=== PATIENT | male | born 1940 | race Caucasian/White ===

== ENCOUNTER 2018-11-29 17:29 | Inpatient (IN) | payer MEDICARE, OTHER ==
[~2018-11-29] VITALS: Ht 182.9 cm; Wt 71.9 kg
[~2018-11-29 17:29] MED LIST: ASPI-496 PO; CARB1TAB25 PO; CARB1TAB44 PO; CLON0.5T11 PO; FLUT50DI NAS; MIRA25TA PO; MODA200T2 PO; PRAZ1CAP2 PO; PSYL1POW PO; QUET25TA7 PO; ROPI0.5T2 PO; SERT100T32 PO; TRAM50TA2 PO
[2018-11-29 20:00] VITALS: BP 143/77
[2018-11-29] MEDS ORDERED: ONDANSETRON 2MG/ML, 2ML IVPush PRN (21:00)
[2018-11-29] MEDS: CARBIDOPA/LEVODOPA CR 50 MG/200 MG TABLET PO SCH (21:00)
[2018-11-29] MEDS: CARBIDOPA/LEVODOPA 25 MG/250 MG TABLET PO SCH (21:00)
[2018-11-29] MEDS ORDERED: HALOPERIDOL 5 MG/ML IV PRN (21:00)
[2018-11-29] MEDS ORDERED: hydrALAzine 20 MG/ML, 1ML IVPush PRN (21:00)
[2018-11-29] MEDS ORDERED: morphine SULFATE 10 MG/ML, 1ML IVPush PRN (21:00)
[2018-11-29] MEDS: QUETIAPINE 25MG TABLET PO SCH (21:00)
[2018-11-29] MEDS: MODAFINIL 100 MG TABLET PO SCH (22:00)
[2018-11-29] MEDS: SODIUM CHLORIDE 0.9% 1,000 ML IV SCH (22:08)
[2018-11-29] MEDS ORDERED: ATOR20TA37 PO (22:41)
[2018-11-29] MEDS ORDERED: DONE10TA7 PO (22:41)
[2018-11-29] MEDS ORDERED: SENN-177 PO (22:41)
[2018-11-29] MEDS ORDERED: BISA5TAB5 PO (22:41)
[2018-11-30 02:00] VITALS: BP 170/83
[2018-11-30 05:29] LABS: BASOPHILS # (AUTO) 0.04 x10^3/uL (0-0.1); BASOPHILS % (AUTO) 0 % (0-1); EOSINOPHILS # (AUTO) 0.32 x10^3/uL (0-0.4); EOSINOPHILS % (AUTO) 3 % (1-7); LYMPHOCYTES # (AUTO) 1.25 x10^3/uL (1-3.4); LYMPHOCYTES % (AUTO) 13 % (22-44); MD NO; MEAN CORPUSCULAR HGB CONC 33.3 g/dL (33.2-36.2); MEAN PLATELET VOLUME 7.6 fL (7.4-10.4); MONOCYTES # (AUTO) 0.74 x10^3/uL (0.2-0.8); MONOCYTES % (AUTO) 7 % (2-9); NEUTROPHILS # (AUTO) 7.69 x10^3/uL (1.8-6.8); NEUTROPHILS % (AUTO) 77 % (42-75); PLATELET COUNT 258 x10^3/uL (130-400); RED BLOOD COUNT 4.51 x10^6/uL (4.38-5.82); RED CELL DISTRIBUTION WIDTH 15.3 % (9.4-14.8)
[2018-11-30 05:35] LABS: ANION GAP 6 mmol/L (5-15); CALCIUM 8.6 mg/dL (8.5-10.1); CHLORIDE 113 mmol/L (98-107)
[2018-11-30 05:36] LABS: CREATININE 0.71 mg/dL (0.7-1.3)
[2018-11-30 07:44] VITALS: BP 153/76
[2018-11-30] MEDS ORDERED: PRAZOSIN 2 MG CAPSULE ONE (08:31)
[2018-11-30] MEDS: ROPINIROLE 0.5MG TABLET PO SCH (08:51)
[2018-11-30] MEDS: HEPARIN 5,000 UNITS/ML, 1ML SQ SCH ×2 (08:51→17:31)
[2018-11-30] MEDS: SERTRALINE 100MG TABLET PO SCH (08:51)
[2018-11-30] MEDS: CARBIDOPA/LEVODOPA 25 MG/250 MG TABLET PO SCH ×3 (08:51→20:45)
[2018-11-30] MEDS: PSYLLIUM PACKET PO SCH (08:52)
[2018-11-30] MEDS: (Mirabegron** (Myrbetriq**) 25 MG) PO SCH (08:52)
[2018-11-30] MEDS: MODAFINIL 100 MG TABLET PO SCH ×2 (08:52→20:45)
[2018-11-30] MEDS: PRAZOSIN 1 MG CAPSULE PO SCH ×2 (08:52→12:31)
[2018-11-30] MEDS ORDERED: FLUTICASONE PROPIONATE 2 MCG NAS SCH (09:00)
[2018-11-30] MEDS: SODIUM CHLORIDE 0.9% 1,000 ML IV SCH ×2 (11:33→19:51)
[2018-11-30 11:44] VITALS: BP 96/54
[2018-11-30] MEDS: HALOPERIDOL 5 MG/ML IM PRN (12:34)
[2018-11-30 14:41] VITALS: BP 141/73
[2018-11-30 19:59] VITALS: BP 129/54
[2018-11-30] MEDS: DONEPEZIL 10 MG TABLET PO SCH (20:45)
[2018-11-30] MEDS: ATORVASTATIN 20 MG TABLET PO SCH (20:45)
[2018-11-30] MEDS: QUETIAPINE 25MG TABLET PO SCH (20:45)
[2018-11-30] MEDS: CARBIDOPA/LEVODOPA CR 50 MG/200 MG TABLET PO SCH (20:46)
[2018-11-30] MEDS ORDERED: SENNA/DOCUSATE TABLET PO PRN (23:00)
[2018-11-30] MEDS ORDERED: BISACODYL 10 MG SUPP PR PRN (23:00)
[2018-12-01] MEDS: HEPARIN 5,000 UNITS/ML, 1ML SQ SCH ×2 (01:00→08:29)
[2018-12-01 02:00] VITALS: BP 100/54
[2018-12-01 05:37] LABS: ALBUMIN 3.3 g/dL (3.4-5.0); ANION GAP 7 mmol/L (5-15); CALCIUM 8.4 mg/dL (8.5-10.1); CHLORIDE 115 mmol/L (98-107)
[2018-12-01 05:40] LABS: ALKALINE PHOSPHATASE 105 U/L (45-117); BILIRUBIN,TOTAL 1.1 mg/dL (0.2-1.0); CREATININE 0.71 mg/dL (0.7-1.3); TOTAL PROTEIN 6.5 g/dL (6.4-8.2)
[2018-12-01 05:42] LABS: ALANINE AMINOTRANSFERASE < 6 U/L (12-78)
[2018-12-01 06:35] VITALS: BP 134/73
[2018-12-01] MEDS: SERTRALINE 100MG TABLET PO SCH (08:29)
[2018-12-01] MEDS: PSYLLIUM PACKET PO SCH (08:29)
[2018-12-01] MEDS: MODAFINIL 100 MG TABLET PO SCH ×2 (08:29→19:48)
[2018-12-01] MEDS: CARBIDOPA/LEVODOPA 25 MG/250 MG TABLET PO SCH ×3 (08:29→19:50)
[2018-12-01] MEDS: PRAZOSIN 1 MG CAPSULE PO SCH (08:30)
[2018-12-01] MEDS: ROPINIROLE 0.5MG TABLET PO SCH (08:31)
[2018-12-01] MEDS: ASPIRIN 81 MG TABLET EC PO SCH (08:31)
[2018-12-01] MEDS: SODIUM CHLORIDE 0.9% 1,000 ML IV SCH (08:33)
[2018-12-01] MEDS: (Mirabegron** (Myrbetriq**) 25 MG) PO SCH (09:00)
[2018-12-01] MEDS ORDERED: OXYcodone/APAP 5/325MG TABLET PO PRN (09:00)
[2018-12-01] MEDS: DOCUSATE 100 MG CAPSULE PO SCH ×2 (11:11→19:48)
[2018-12-01 12:50] VITALS: BP 100/54
[2018-12-01] MEDS ORDERED: FENTANYL PF 100 MCG/2ML ONE ×2 (14:22→15:20)
[2018-12-01] MEDS ORDERED: hydrALAzine 20 MG/ML, 1ML IV PRN (14:30)
[2018-12-01] MEDS ORDERED: ACETAMINOPHEN 325 MG TABLET PO PRN (14:30)
[2018-12-01] MEDS ORDERED: OXYcodone 5 MG/5 ML ORAL.SOL UDC PO PRN (14:30)
[2018-12-01] MEDS ORDERED: LABETALOL 5MG/ML, 20ML IV PRN (14:30)
[2018-12-01] MEDS ORDERED: SUCCINYLCHOLINE 20 MG/ML, 10ML ONE (14:35)
[2018-12-01] MEDS ORDERED: CEFAZOLIN 1,000 MG ONE (14:35)
[2018-12-01] MEDS: FENTANYL PF 100 MCG/2ML IV PRN ×2 (15:22→15:25)
[2018-12-01] MEDS ORDERED: OXYcodone 5 MG/5 ML ORAL.SOL UDC ONE (15:36)
[2018-12-01] MEDS ORDERED: morphine SULFATE 10 MG/ML, 1ML IVPush PRN (18:00)
[2018-12-01 19:09] VITALS: BP 127/67
[2018-12-01] MEDS: ATORVASTATIN 20 MG TABLET PO SCH (19:48)
[2018-12-01] MEDS: DONEPEZIL 10 MG TABLET PO SCH (19:48)
[2018-12-01] MEDS: QUETIAPINE 25MG TABLET PO SCH (19:48)
[2018-12-01] MEDS: CARBIDOPA/LEVODOPA CR 50 MG/200 MG TABLET PO SCH (19:49)
[2018-12-01] MEDS: CEFAZOLIN PMX 1GM/50ML 50 ML IV SCH (22:48)
[2018-12-01 23:54] VITALS: BP 120/64
[2018-12-02] MEDS: SODIUM CHLORIDE 0.9% 1,000 ML IV SCH ×2 (03:28→14:24)
[2018-12-02 03:36] VITALS: BP 166/79
[2018-12-02] MEDS: ENOXAPARIN 40 MG/0.4 ML SQ SCH (06:35)
[2018-12-02] MEDS: CEFAZOLIN PMX 1GM/50ML 50 ML IV SCH (06:35)
[2018-12-02 06:53] VITALS: BP 157/74
[2018-12-02] MEDS: MODAFINIL 100 MG TABLET PO SCH ×2 (09:32→20:00)
[2018-12-02] MEDS: DOCUSATE 100 MG CAPSULE PO SCH ×2 (09:33→20:00)
[2018-12-02] MEDS: CARBIDOPA/LEVODOPA 25 MG/250 MG TABLET PO SCH ×3 (09:33→20:00)
[2018-12-02] MEDS: ASPIRIN 81 MG TABLET EC PO SCH (09:33)
[2018-12-02] MEDS: PRAZOSIN 1 MG CAPSULE PO SCH (09:33)
[2018-12-02] MEDS: PSYLLIUM PACKET PO SCH (09:34)
[2018-12-02] MEDS: ROPINIROLE 0.5MG TABLET PO SCH (09:37)
[2018-12-02] MEDS: SERTRALINE 100MG TABLET PO SCH (09:37)
[2018-12-02] MEDS: (Mirabegron** (Myrbetriq**) 25 MG) PO SCH (09:39)
--- NOTE | 2018-12-02 10:58 | NUR ---
REC: Pureed diet with NTL with 1:1 assist for meals, crush meds, strict aspiration precautions; orange sheet was placed in room with swallowing precautions and recommended diet Addendum: 12/02/18 at 1058 by Liberty ESTEVEZ Amended: Links added.
--- NOTE | 2018-12-02 11:21 | NUR ---
REC: Chopped diet with NTL with assistance for meals; strict aspiration precautions; orange sheet posted in room containing swallowing precautions and recommended diet Addendum: 12/02/18 at 1122 by Liberty ESTEVEZ Amended: Links added.
[2018-12-02] MEDS: FLUTICASONE NASAL SPRAY 16GM NAS SCH (11:22)
[2018-12-02 13:54] VITALS: BP 108/70
[2018-12-02 18:53] VITALS: BP 100/48
[2018-12-02] MEDS: DONEPEZIL 10 MG TABLET PO SCH (20:00)
[2018-12-02] MEDS: ATORVASTATIN 20 MG TABLET PO SCH (20:00)
[2018-12-02] MEDS: CARBIDOPA/LEVODOPA CR 50 MG/200 MG TABLET PO SCH (20:00)
[2018-12-02] MEDS: QUETIAPINE 25MG TABLET PO SCH (20:00)
[2018-12-02] MEDS: HALOPERIDOL 5 MG/ML IM PRN (21:22)
[2018-12-03 02:03] VITALS: BP 164/56
[2018-12-03] MEDS: ENOXAPARIN 40 MG/0.4 ML SQ SCH (05:26)
[2018-12-03] MEDS: SODIUM CHLORIDE 0.9% 1,000 ML IV SCH (05:26)
[2018-12-03 06:53] VITALS: BP 146/69
[2018-12-03] MEDS ORDERED: ACET325T14 PO (07:21)
[2018-12-03] MEDS: FLUTICASONE NASAL SPRAY 16GM NAS SCH (08:13)
[2018-12-03] MEDS: (Mirabegron** (Myrbetriq**) 25 MG) PO SCH (08:13)
[2018-12-03] MEDS: ASPIRIN 81 MG TABLET EC PO SCH (09:00)
[2018-12-03] MEDS: PRAZOSIN 1 MG CAPSULE PO SCH (09:00)
[2018-12-03] MEDS: DOCUSATE 100 MG CAPSULE PO SCH (09:00)
[2018-12-03] MEDS: CARBIDOPA/LEVODOPA 25 MG/250 MG TABLET PO SCH (09:00)
[2018-12-03] MEDS: PSYLLIUM PACKET PO SCH (09:00)
[2018-12-03] MEDS: ROPINIROLE 0.5MG TABLET PO SCH (09:00)
[2018-12-03] MEDS: MODAFINIL 100 MG TABLET PO SCH (09:00)
[2018-12-03] MEDS: SERTRALINE 100MG TABLET PO SCH (09:00)
[2018-12-03 09:56] VITALS: BP 140/59
== END 2018-12-03 10:48 | DRG 480 ==
LOC: 4NOR 20:02
PROVIDERS: ADMIT Hospitalist; ATTEND Hospitalist
PROC: 0QS734Z Reposition Left Upper Femur with Internal Fixation Device, Percutaneous Approach (ICD-10-PCS; principal; 2018-12-01 14:00)
DX: S72.002A Fracture of unspecified part of neck of left femur, initial encounter for closed fracture (principal); R53.2 Functional quadriplegia; J98.11 Atelectasis; M48.56XA Collapsed vertebra, not elsewhere classified, lumbar region, initial encounter for fracture; G20 Parkinson's disease; F02.80 Dementia in other diseases classified elsewhere, unspecified severity, without behavioral disturbance, psychotic disturbance, mood disturbance, and anxiety; M16.0 Bilateral primary osteoarthritis of hip; N40.0 Benign prostatic hyperplasia without lower urinary tract symptoms; Z66 Do not resuscitate; W18.39XA Other fall on same level, initial encounter; Y93.89 Activity, other specified; Z88.0 Allergy status to penicillin; Z88.2 Allergy status to sulfonamides; Y92.89 Other specified places as the place of occurrence of the external cause; Y99.8 Other external cause status
CPT/HCPCS: 36415; 71045; 72192; 76000; 80048; 80053; 85025; 93005; C1713; G0378; J0690; J1644; J1650; J3010; J0330; J1630; J2270; J7030